=== PATIENT | female | born 1960 | race African-American/Black ===

== ENCOUNTER 2018-05-29 14:49 | Emergency (ER) | payer SELFPAY ==
[~2018-05-29] VITALS: Ht 162.5 cm; Wt 119.3 kg
[2018-05-29] MEDS ORDERED: IBU800 MG PO (16:36)
[2018-08-21] MEDS ORDERED: ACETAMIN-CODE12.5 ML PO (19:30)
[2018-08-21] MEDS ORDERED: LIPITOR20 MG PO (19:30)
[2018-08-21] MEDS ORDERED: COZAAR50 M1 PO (19:31)
[2018-08-21] MEDS ORDERED: CHLORTHALIDONE25 MG PO (19:31)
== END 2018-05-29 16:36 | disposition home or self-care (01) ==
LOC: ED 14:49
DX: M79.671 Pain in right foot (principal); I10 Essential (primary) hypertension; W22.8XXA Striking against or struck by other objects, initial encounter; Y93.89 Activity, other specified; Y92.89 Other specified places as the place of occurrence of the external cause; Y99.0 Civilian activity done for income or pay